=== PATIENT | male | born 1975 | race African-American/Black ===

== ENCOUNTER 2018-05-16 15:14 | Emergency (ER) | payer OTHER, MEDICAID ==
[2018-05-16 16:42] LABS: BASOPHILS 0.4 % (0-2); EOSINOPHILS 4.5 % (0-7); HEMATOCRIT 48.3 % (42.0-54.0); HEMOGLOBIN 16.3 g/dL (13.5-17.5); IMMATURE GRANULOCYTES 0.1 % (0-5); LYMPHOCYTES 27.3 % (15-50); MCH 29.8 pg (26.0-34.0); MCHC 33.7 g/dL (31.0-37.0); MCV 88.3 fL (80.0-100.0); MEAN PLATELET VOLUME 10.8 fL (7.4-10.4); MONOCYTES 8.7 % (2-11); PLATELET COUNT 245 10x3/uL (130-400); RBC 5.47 10x6/uL (4.20-6.10); RDW 13.1 % (11.5-14.5); WBC 7.4 10x3/uL (4.8-10.8)
[2018-05-16 17:01] LABS: ALKALINE PHOSPHATASE 113 U/L (46-116); ALT (SGPT) 17 U/L (10-68); BILIRUBIN - TOTAL 0.26 mg/dL (0.2-1.3); CALC OSMOLALITY 278 mosm/kg (275-300); CALCIUM 9.4 mg/dL (8.5-10.1); CARBON DIOXIDE 26.8 mmol/L (21.0-32.0); CHLORIDE - SERUM 103 mmol/L (98-107); CREATININE - SERUM 1.1 mg/dL (0.6-1.3); GLUCOSE 95 mg/dL (74-106); POTASSIUM - SERUM 3.7 mmol/L (3.5-5.1); PROTEIN - SERUM 7.9 g/dL (6.4-8.2); SODIUM 141 mmol/L (136-145); UREA NITROGEN 8 mg/dL (7-18); eGFR NON AFRICAN AMERICAN 79 mL/min (90-120)
[2018-05-16 22:57] VITALS: BP 142/72
== END 2018-05-16 22:57 | disposition other institution (70) ==
LOC: D.ER 15:14
PROVIDERS: Family Medicine
DX: L03.213 Periorbital cellulitis (principal); S02.81XA Fracture of other specified skull and facial bones, right side, initial encounter for closed fracture; S06.9X0A Unspecified intracranial injury without loss of consciousness, initial encounter; X58.XXXA Exposure to other specified factors, initial encounter; Y93.89 Activity, other specified; Y92.019 Unspecified place in single-family (private) house as the place of occurrence of the external cause

== ENCOUNTER 2019-01-07 10:30 | Emergency (ER) | payer OTHER ==
[~2019-01-07] VITALS: Ht 167.6 cm; Wt 68.0 kg
[2019-01-07 10:41] VITALS: Ht 167.6 cm; Wt 68.0 kg
[2019-01-07] MEDS ORDERED: ERYTHROMYCIN OPT1 GM LEFT EYE (11:19)
[2019-01-07 11:54] VITALS: BP 130/74
== END 2019-01-07 11:56 | disposition home or self-care (01) ==
LOC: D.ER 10:30
DX: S05.02XA Injury of conjunctiva and corneal abrasion without foreign body, left eye, initial encounter (principal); X58.XXXA Exposure to other specified factors, initial encounter; F17.210 Nicotine dependence, cigarettes, uncomplicated